=== PATIENT | female | born 1985 | race Hispanic/Latino ===

== ENCOUNTER 2020-05-27 14:24 | Emergency (ER) | payer SELFPAY ==
[2020-05-27] MEDS ORDERED: ONDANSETRON 4 MG/2 ML INJ ONE (18:24)
--- NOTE | 2020-05-27 18:35 | Emergency Department Report ---
ED General Adult HPI - General Chief complaint: Abdominal Pain Stated complaint: SATYA WITHDRAWL Time Seen by Provider: 05/27/20 18:24 Source: patient Mode of arrival: Stretcher Limitations: No Limitations - History of Present Illness Initial comments: 34-year-old female presents to ED requesting detox from heroin. Patient states 2 days ago she woke up in a ditch. States she had gotten high on heroin. Patient states after waking up, she made her way to the bus stop. Patient states [place] police called EMS which brought her to the ER. Patient states she is withdrawing from heroin, experiencing abdominal pain, nausea, and diarrhea. Patient states she is here for detox. -: days(s) (2) Location: abdomen Quality: other (Cramping) Improves with: none Worsens with: none Associated Symptoms: nausea/vomiting. denies: fever/chills Treatments Prior to Arrival: none - Related Data Allergies Allergy/AdvReac Type Severity Reaction Status Date / Time No Known Allergies Allergy Verified 05/27/20 21:07 ED Review of Systems ROS: Stated complaint: SATYA WITHDRAWL Other details as noted in HPI Comment: All other systems reviewed and negative Constitutional: denies: chills, fever Gastrointestinal: abdominal pain, nausea, vomiting, diarrhea ED Past Medical Hx - Past Medical History Previous Medical History?: Yes Additional medical history: Hepatitis C - Surgical History Past Surgical History?: Yes Additional Surgical History: tubal ligation - Social History Smoking Status: Current Every Day Smoker Substance Use Type: Heroin ED Physical Exam - General Limitations: No Limitations General appearance: alert, in no apparent distress, other (Appears unkempt) - Head Head exam: Present: atraumatic, normocephalic - Eye Eye exam: Present: normal appearance, EOMI - ENT ENT exam: Present: mucous membranes moist - Neck Neck exam: Present: normal inspection - Respiratory Respiratory exam: Present: normal lung sounds bilaterally. Absent: respiratory distress - Cardiovascular Cardiovascular Exam: Present: regular rate, normal rhythm - GI/Abdominal GI/Abdominal exam: Present: soft. Absent: distended, tenderness - Extremities Exam Extremities exam: Present: normal inspection - Neurological Exam Neurological exam: Present: alert, oriented X3 - Psychiatric Psychiatric exam: Present: normal affect, normal mood - Skin Skin exam: Present: warm, dry, intact, normal color ED Course Vital Signs 07/05/27/20 05/27/20 17:30 18:48 21:20 Temperature 98 F 97.9 F Pulse Rate 76 65 Respiratory 16 14 14 Rate Blood Pressure 108/72 110/68 [Right] O2 Sat by Pulse 98 99 Oximetry ED Medical Decision Making - Medical Decision Making 34 yo F, hx heroin abuse, presents to ED for detox. Vitals stable. Pt has no emergent medical condition. She will be given outpatient resources for substance abuse programs. Return precautions given. - Differential Diagnosis heroin withdrawal Critical care attestation.: If time is entered above; I have spent that time in minutes in the direct care of this critically ill patient, excluding procedure time. ED Disposition Clinical Impression: Heroin withdrawal Disposition: MED SCREENING EXAM-LEFT Is pt being admited?: No Condition: Stable Instructions: Narcotic Abuse (ED), Opioid Withdrawal (ED) Referrals: PRIMARY CARE, [Primary Care Provider] - 3-5 Days
[2020-05-27] MEDS ORDERED: ONDANSETRON 4 MG/2 ML INJ IV ONE (18:47)
[2020-05-27 21:40] VITALS: BP 110/68
== END 2020-05-27 21:40 | disposition left against medical advice (07) ==
LOC: ED 14:24
DX: F19.939 Other psychoactive substance use, unspecified with withdrawal, unspecified (principal); Z53.21 Procedure and treatment not carried out due to patient leaving prior to being seen by health care provider
CPT/HCPCS: J2405

== ENCOUNTER 2021-02-21 14:11 | Emergency (ER) | payer SELFPAY ==
[2021-02-21 14:40] VITALS: BP 118/68
--- NOTE | 2021-02-21 16:03 | Emergency Department Report ---
ED General Adult HPI - General Chief complaint: Skin Rash Stated complaint: RASH Time Seen by Provider: 02/21/21 14:34 Source: patient Mode of arrival: Ambulatory Limitations: No Limitations - Related Data Allergies Allergy/AdvReac Type Severity Reaction Status Date / Time No Known Allergies Allergy Verified 05/27/20 21:07 ED Review of Systems ROS: Stated complaint: RASH Other details as noted in HPI ED Past Medical Hx - Past Medical History Previous Medical History?: Yes Additional medical history: Hepatitis C - Surgical History Past Surgical History?: Yes Additional Surgical History: tubal ligation - Social History Smoking Status: Current Every Day Smoker Substance Use Type: Heroin ED Physical Exam - General Limitations: No Limitations ED Course Vital Signs 02/21/21 14:34 Pulse Rate 102 H Respiratory 18 Rate Blood Pressure 118/68 [Right] O2 Sat by Pulse 100 Oximetry Critical care attestation.: If time is entered above; I have spent that time in minutes in the direct care of this critically ill patient, excluding procedure time. ED Disposition Condition: Stable
[2021-02-21] MEDS ORDERED: DEXAMETHASONE 4 MG TAB PO ONE (16:31)
[2021-02-21] MEDS ORDERED: PENICILLIN G BENZATHINE 1.2 MILLION UNIT/2 ML INJ IM ONE (16:32)
[2021-02-21] MEDS ORDERED: dexAMETHasone 20 MG/5 ML VIAL IM ONE (16:37)
--- NOTE | 2021-02-21 16:39 | Emergency Department Report ---
ED General Adult HPI - General Chief complaint: Skin Rash Stated complaint: RASH Time Seen by Provider: 02/21/21 14:34 Source: patient Mode of arrival: Ambulatory Limitations: No Limitations - History of Present Illness Initial comments: 35-year-old female patient presents with complaints of recurrent rash to the face and bilateral upper and lower extremities x 6 months. Patient states she first noted the rash to the face when she was diagnosed with syphilis in September 2020 at a health department. 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 She reports at that time she did receive the penicillin IM treatment for the syphilis and again received another dose of penicillin approximately 1 month later at a hospital. She denies any headaches, numbness/tingling/weakness in her limbs, confusion, vision changes, difficulty with speech/ambulation, vaginal lesions, or vaginal discharge. She also reports that she has been placed on multiple antibiotics for her skin lesions and that the lesions resolve with antibiotic treatment and then return a few weeks later. Patient has not followed up with a trust vault custodian or primary care provider. - Related Data Previous Rx's Medication Instructions Recorded Last Taken Type Doxycycline Monohydrate 100 mg PO BID 14 Days #28 capsule 02/21/21 Unknown Rx Allergies Allergy/AdvReac Type Severity Reaction Status Date / Time No Known Allergies Allergy Verified 05/27/20 21:07 ED Review of Systems ROS: Stated complaint: RASH Other details as noted in HPI Constitutional: denies: chills, diaphoresis, fever, malaise, weakness Respiratory: denies: cough, shortness of breath Cardiovascular: denies: chest pain, palpitations, edema Gastrointestinal: denies: abdominal pain, nausea, vomiting Genitourinary: denies: urgency, dysuria, frequency, hematuria, discharge, abnormal menses, dyspareunia Skin: rash, lesions Neurological: denies: headache, weakness, numbness, paresthesias, confusion, abnormal gait, vertigo Psychiatric: denies: auditory hallucinations, visual hallucinations Hematological/Lymphatic: denies: swollen glands ED Past Medical Hx - Past Medical History Previous Medical History?: Yes Additional medical history: Hepatitis C - Surgical History Past Surgical History?: Yes Additional Surgical History: tubal ligation - Social History Smoking Status: Current Every Day Smoker Substance Use Type: Heroin - Medications Home Medications: Home Medications Medication Instructions Recorded Confirmed Last Taken Type Doxycycline Monohydrate 100 mg PO BID 14 Days #28 capsule 02/21/21 Unknown Rx ED Physical Exam - General Limitations: No Limitations General appearance: alert, in no apparent distress - Head Head exam: Present: atraumatic, normocephalic - Eye Eye exam: Present: normal appearance. Absent: scleral icterus - Neck Neck exam: Present: normal inspection. Absent: tenderness, meningismus, lymphadenopathy - Respiratory Respiratory exam: Present: normal lung sounds bilaterally. Absent: respiratory distress - Cardiovascular Cardiovascular Exam: Present: regular rate, normal rhythm. Absent: systolic murmur, diastolic murmur, rubs, gallop - GI/Abdominal GI/Abdominal exam: Present: soft. Absent: tenderness - Extremities Exam Extremities exam: Present: full ROM - Back Exam Back exam: Present: normal inspection, full ROM - Neurological Exam Neurological exam: Present: alert, oriented X3, CN II-XII intact, normal gait. Absent: motor sensory deficit - Expanded Neurological Exam Expanded Cerebellar function: Finger to Nose: Normal, Heel to Dillon: Normal, Romberg: Normal Sensory exam: Upper Extremity Light Touch: Normal, Lower Extremity Light Touch: Normal Motor strength exam: RUE: 5, LUE: 5, RLE: 5, LLE: 5 - Psychiatric Psychiatric exam: Present: normal affect, anxious - Skin Skin exam: Present: warm, dry, intact, normal color, rash (Healing nonerythemic shallow small ulcerations noted diffusely to face without cellulitic changes or drainage noted; no tenderness to palpation noted). Absent: diaphoretic, erythema, petechiae ED Course Vital Signs 02/21/21 02/21/21 14:34 17:06 Temperature 98.8 F Pulse Rate 102 H Respiratory 18 Rate Blood Pressure 118/68 [Right] O2 Sat by Pulse 100 Oximetry ED Medical Decision Making - Medical Decision Making 35-year-old female patient presents with complaints of recurrent rash to the face and bilateral upper and lower extremities x 6 months. Patient states she first noted the rash to the face when she was diagnosed with syphilis in September 2020 at a health department. 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 She reports at that time she did receive the penicillin IM treatment for the syphilis and again received another dose of penicillin approximately 1 month later at a hospital. She denies any headaches, numbness/tingling/weakness in her limbs, confusion, vision changes, difficulty with speech/ambulation, vaginal lesions, or vaginal discharge. She also reports that she has been placed on multiple antibiotics for her skin lesions and that the lesions resolve with antibiotic treatment and then return a few weeks later. Patient has not followed up with a trust vault custodian or primary care provider. No signs of neurosyphilis. Discussed patient in detail with Dr. Garcia who also evaluated and spoke with patient-he agrees with plan. We will treat patient with IM penicillin and discharged on Doxy. Patient strongly urged to follow-up with the health department for retesting of syphilis and dermatology. Patient provided with referral and health department information. She is afebrile and heart rate repeated at 94 bpm. Strict return precautions discussed in great detail with patient who verbalizes understanding. Critical care attestation.: If time is entered above; I have spent that time in minutes in the direct care of this critically ill patient, excluding procedure time. ED Disposition Clinical Impression: Rash and nonspecific skin eruption Disposition: DC-01 TO HOME OR SELFCARE Is pt being admited?: No Condition: Stable Instructions: Syphilis, Rash, Adult, [id number] Additional Instructions: Please follow-up with the health department for further syphilis testing and treatment Prescriptions: Doxycycline Monohydrate 100 mg PO BID 14 Days #28 capsule Referrals: DAMIÁN GAMA MD [Staff Physician] - 2-3 Days
== END 2021-02-21 17:57 | disposition home or self-care (01) ==
LOC: ED 14:11
DX: R21 Rash and other nonspecific skin eruption (principal); F17.200 Nicotine dependence, unspecified, uncomplicated; Z98.51 Tubal ligation status; Z79.899 Other long term (current) drug therapy
CPT/HCPCS: 96372; 99282; J0561; J1100

== ENCOUNTER 2021-09-14 05:29 | Emergency (ER) | payer SELFPAY ==
[2021-09-14 05:54] VITALS: BP 110/63
--- NOTE | 2021-09-14 07:41 | Emergency Department Report ---
- General Chief complaint: Skin/Abscess/Foreign Body Stated complaint: FACIAL/SORES Time Seen by Provider: 09/14/21 07:13 Source: patient Mode of arrival: Ambulatory Limitations: No Limitations - History of Present Illness Initial comments: This is a 35-year-old female nontoxic, well nourished in appearance, no acute signs of distress presents to the ED with c/o of facial rash with redness and pain that is acute on chronic intermittent. Patient denies any pus or drainage. Patient denies any fever, chills, nausea, vomiting, chest pain, shortness of breath, headache or stiff neck. Patient denies any allergies. Patient stated she took doxycycline several months ago which resolved but came back t a few days ago. MD complaint: rash -: days(s) Location: face Severity: mild Severity scale (0 -10): 3 Quality: aching Consistency: constant Improves with: none Worsens with: none Context: none Associated symptoms: denies other symptoms - Related Data Previous Rx's Medication Instructions Recorded Last Taken Type Doxycycline Monohydrate 100 mg PO BID 14 Days #28 capsule 02/21/21 Unknown Rx cephALEXin [Keflex] 500 mg PO Q8HR #21 cap 09/14/21 Unknown Rx Allergies Allergy/AdvReac Type Severity Reaction Status Date / Time No Known Allergies Allergy Verified 05/27/20 21:07 Abscess Boil HPI - HPI Chief Complaint: Skin/Abscess/Foreign Body Stated Complaint: FACIAL/SORES Time Seen by Provider: 09/14/21 07:13 Home Medications: Previous Rx's Medication Instructions Recorded Last Taken Type Doxycycline Monohydrate 100 mg PO BID 14 Days #28 capsule 02/21/21 Unknown Rx cephALEXin [Keflex] 500 mg PO Q8HR #21 cap 09/14/21 Unknown Rx Allergies/Adverse Reactions: Allergies Allergy/AdvReac Type Severity Reaction Status Date / Time No Known Allergies Allergy Verified 05/27/20 21:07 ED Review of Systems ROS: Stated complaint: FACIAL/SORES Other details as noted in HPI Comment: All other systems reviewed and negative Constitutional: denies: chills, fever Eyes: denies: eye pain, eye discharge, vision change ENT: denies: ear pain, throat pain Respiratory: denies: cough, shortness of breath, wheezing Cardiovascular: denies: chest pain, palpitations Endocrine: no symptoms reported Gastrointestinal: denies: abdominal pain, nausea, diarrhea Genitourinary: denies: urgency, dysuria, discharge Musculoskeletal: denies: back pain, joint swelling, arthralgia Skin: rash. denies: lesions Neurological: denies: headache, weakness, paresthesias Psychiatric: denies: anxiety, depression Hematological/Lymphatic: denies: easy bleeding, easy bruising ED Past Medical Hx - Past Medical History Previous Medical History?: Yes Additional medical history: Hepatitis C - Surgical History Past Surgical History?: Yes Additional Surgical History: tubal ligation - Social History Smoking Status: Never Smoker Substance Use Type: None - Medications Home Medications: Home Medications Medication Instructions Recorded Confirmed Last Taken Type Doxycycline Monohydrate 100 mg PO BID 14 Days #28 capsule 02/21/21 Unknown Rx cephALEXin [Keflex] 500 mg PO Q8HR #21 cap 09/14/21 Unknown Rx ED Physical Exam - General Limitations: No Limitations General appearance: alert, in no apparent distress - Head Head exam: Present: atraumatic, normocephalic - Eye Eye exam: Present: normal appearance - ENT ENT exam: Present: normal exam, normal orophraynx - Neck Neck exam: Present: normal inspection, full ROM. Absent: tenderness, meningismus, lymphadenopathy - Respiratory Respiratory exam: Absent: respiratory distress - Cardiovascular Cardiovascular Exam: Present: regular rate - Extremities Exam Extremities exam: Present: full ROM - Back Exam Back exam: Present: full ROM - Neurological Exam Neurological exam: Present: alert, oriented X3, normal gait - Psychiatric Psychiatric exam: Present: normal affect, normal mood - Skin Skin exam: Present: warm, dry, intact, rash (With tenderness with some redness to bilateral cheeks on exam. No swelling or abscess formation noted.). Absent: cyanosis, diaphoretic, erythema, urticaria, vesicles, petechiae, pallor, abrasion, ecchymosis ED Course Vital Signs 09/14/21 05:46 Temperature 98.3 F Pulse Rate 86 Respiratory 16 Rate Blood Pressure 110/63 O2 Sat by Pulse 100 Oximetry - Reevaluation(s) Reevaluation #1: 09/14/21 07:38 Patient is speaking in full sentences with no signs of distress noted. ED Medical Decision Making - Medical Decision Making Patient be treated with Keflex. Vitals are stable. Physical exam is otherwise unremarkable. There is no induration, fluctuance. No signs of abscess formation. Patient was referred to Follow-up with a primary care doctor in 3-5 days or if symptoms worsen and continue return to emergency room as soon as possible. At time of discharge, the patient does not seem toxic or ill in appearance. No acute signs of distress noted. Patient agrees to discharge treatment plan of care. No further questions noted by the patient. Critical care attestation.: If time is entered above; I have spent that time in minutes in the direct care of this critically ill patient, excluding procedure time. ED Disposition Clinical Impression: Rash of unknown etiology Disposition: 01 HOME / SELF CARE / HOMELESS Is pt being admited?: No Does the pt Need Aspirin: No Condition: Stable Additional Instructions: Follow-up with a primary care doctor in 3-5 days or if symptoms worsen and continue return to emergency room as soon as possible. Prescriptions: cephALEXin [Keflex] 500 mg PO Q8HR #21 cap Referrals: PRIMARY MD OMAIRA [Referring] - 3-5 Days STACY COOK MD [Staff Physician] - 3-5 Days Time of Disposition: 07:42
== END 2021-09-14 07:59 | disposition home or self-care (01) ==
LOC: ED 05:29
DX: R21 Rash and other nonspecific skin eruption (principal); Z98.51 Tubal ligation status; Z98.890 Other specified postprocedural states; Z79.899 Other long term (current) drug therapy
CPT/HCPCS: 99282